=== PATIENT | male | born 1975 | race Caucasian/White ===

== ENCOUNTER 2019-05-03 12:04 | Emergency (ER) | payer BC ==
[2019-05-03 12:33] LABS: ADD MAN DIFF? NO
[2019-05-03 12:35] LABS: WHITE BLOOD COUNT 5.5 10^3/ul (4.8-10.8)
[2019-05-03 12:35] LABS: BASOPHILS % 0.5 % (0.0-2.0); EOSINOPHILS # 0.1 10^3/ul (0.0-0.5); EOSINOPHILS % 1.3 % (0.0-7.0); HEMATOCRIT 46.6 % (42.0-52.0); HEMOGLOBIN 16.3 g/dl (14.0-18.0); LYMPHOCYTES # 1.5 10^3/ul (0.8-2.9); LYMPHOCYTES % 28.2 % (15.0-51.0); MEAN CORPUSCULAR VOLUME 91.6 fl (82.0-101.0); MEAN PLATELET VOLUME 10.9 fl (7.4-10.4); MONOCYTE # 0.4 10^3/ul (0.3-0.9); MONOCYTES % 7.7 % (0.0-11.0); NEUTROPHIL # 3.4 10^3/ul (1.6-7.5); NEUTROPHILS % 61.9 % (39.0-77.0); PLATELET COUNT 200 10^3/UL (140-415); RED BLOOD COUNT 5.09 10^6/ul (4.70-6.10); RED CELL DISTRIBUTION WIDTH 12.3 % (11.5-14.5)
[2019-05-03 12:53] LABS: ALANINE AMINOTRANSFERASE 33 IU/L (13-69); ALBUMIN 4.6 g/dl (3.3-4.9); ALBUMIN/GLOBULIN RATIO 1.39; ALKALINE PHOSPHATASE 56 IU/L (42-121); ANION GAP 12 (5-13); ASPARTATE AMINO TRANSFERASE 30 IU/L (15-46); BILIRUBIN,INDIRECT 0.9 mg/dl (0-1.1); BILIRUBIN,TOTAL 0.9 mg/dl (0.2-1.3); BLOOD UREA NITROGEN 17 mg/dl (7-20); CALCIUM 9.5 mg/dl (8.4-10.2); CARBON DIOXIDE 27 mmol/L (21-31); CHLORIDE 102 mmol/L (97-110); CHOL/HDL RATIO 3.6 RATIO; CHOLESTEROL 209 mg/dl (100-200); CREATINE KINASE 72 IU/L (23-200); CREATININE 1.05 mg/dl (0.61-1.24); Estimated GFR > 60 mL/min (>60); GLUCOSE 120 mg/dl (70-220); HDL CHOLESTEROL 58 mg/dl (27-67); LDL CHOLESTEROL,CALCULATED 134 mg/dl; POTASSIUM 3.9 mmol/L (3.5-5.1); SODIUM 141 mmol/L (135-144); TOTAL PROTEIN 7.9 g/dl (6.1-8.1); TRIGLYCERIDES 85 mg/dl (0-149)
[2019-05-03 12:56] LABS: HEMOGLOBIN A1C 5.5 % (0-5.9)
[2019-05-03 13:00] LABS: CK INDEX 1.8; CK-MB 1.32 ng/ml (0.0-2.4)
[2019-05-03 13:01] LABS: ETHANOL < 10.0 mg/dl (0-0); INR 0.96; PROTIME 12.9 Sec (11.9-14.9)
[2019-05-03 13:02] LABS: PARTIAL THROMBOPLASTIN TIME 30.3 Sec (23.0-35.0)
[2019-05-03 13:08] LABS: TROPONIN-I < 0.012 ng/ml (0.000-0.120)
[2019-05-03] MEDS: IOHEXOL 100 ML (13:14)
[2019-05-03] MEDS: SOD CHLORIDE 0.9% 100 ML (13:15)
[2019-05-03 14:02] LABS: ADD UMIC NO; UR ASCORBIC ACID NEGATIVE (NEGATIVE); UR BILIRUBIN (Dip) NEGATIVE (NEGATIVE); UR BLOOD (Dip) NEGATIVE (NEGATIVE); UR CLARITY CLEAR (CLEAR); UR COLOR STRAW (YELLOW); UR GLUCOSE (Dip) NEGATIVE (NEGATIVE); UR KETONES (Dip) NEGATIVE (NEGATIVE); UR LEUKOCYTE ESTERASE (Dip) NEGATIVE Leu/ul (NEGATIVE); UR NITRITE (Dip) NEGATIVE (NEGATIVE); UR SPECIFIC GRAVITY (Dip) > 1.060 (1.003-1.030); UR TOTAL PROTEIN (Dip) NEGATIVE (NEGATIVE); UR UROBILINOGEN (Dip) NEGATIVE (NEGATIVE)
[2019-05-03] MEDS: LABETALOL HCL 20MG INJ IV (14:16)
[2019-05-03 14:20] LABS: AMPHETAMINE/METHAMPHETAMINE Negative (NEGATIVE); BARBITURATES Negative (NEGATIVE); BENZODIAZEPINES Negative (NEGATIVE); CANNABINOIDS Positive (NEGATIVE); COCAINE Negative (NEGATIVE); OPIATES Negative (NEGATIVE)
== END 2019-05-03 14:25 | disposition short-term general hospital (02) ==
LOC: E/R 12:04
DX: I63.9 Cerebral infarction, unspecified (principal); R40.2142 Coma scale, eyes open, spontaneous, at arrival to emergency department; R40.2362 Coma scale, best motor response, obeys commands, at arrival to emergency department; R40.2252 Coma scale, best verbal response, oriented, at arrival to emergency department; I10 Essential (primary) hypertension; I77.71 Dissection of carotid artery; R42 Dizziness and giddiness
CPT/HCPCS: 36415; 70450; 70496; 70498; 71045; 80053; 80061; 80307; 81003; 82550; 82553; 83036; 84484; 85025; 85610; 85730; 93005; 96374; 99285-25

== ENCOUNTER 2019-05-12 09:15 | Emergency (ER) | payer BC ==
[2019-05-12 09:49] LABS: ADD MAN DIFF? NO
[2019-05-12] MEDS ORDERED: IOHEXOL 100 ML ×2 (09:51→14:32)
[2019-05-12] MEDS ORDERED: SOD CHLORIDE 0.9% 100 ML ×2 (09:51→14:32)
[2019-05-12 09:54] LABS: WHITE BLOOD COUNT 6.2 10^3/ul (4.8-10.8)
[2019-05-12 09:54] LABS: BASOPHILS % 0.5 % (0.0-2.0); EOSINOPHILS # 0.2 10^3/ul (0.0-0.5); EOSINOPHILS % 3.2 % (0.0-7.0); HEMATOCRIT 41.7 % (42.0-52.0); HEMOGLOBIN 14.4 g/dl (14.0-18.0); LYMPHOCYTES # 1.6 10^3/ul (0.8-2.9); LYMPHOCYTES % 25.5 % (15.0-51.0); MEAN CORPUSCULAR HEMOGLOBIN 31.9 pg (29.0-33.0); MEAN CORPUSCULAR HGB CONC 34.5 g/dl (32.0-37.0); MEAN CORPUSCULAR VOLUME 92.3 fl (82.0-101.0); MEAN PLATELET VOLUME 10.9 fl (7.4-10.4); MONOCYTE # 0.6 10^3/ul (0.3-0.9); MONOCYTES % 10.4 % (0.0-11.0); NEUTROPHIL # 3.7 10^3/ul (1.6-7.5); NEUTROPHILS % 59.8 % (39.0-77.0); PLATELET COUNT 199 10^3/UL (140-415); RED BLOOD COUNT 4.52 10^6/ul (4.70-6.10); RED CELL DISTRIBUTION WIDTH 12.1 % (11.5-14.5)
[2019-05-12] MEDS ORDERED: HYDROmorphONE 1 MG/ML SYG IV (09:55)
[2019-05-12] MEDS: SOD CHLORIDE 0.9% 500 ML IV (10:01)
[2019-05-12 10:12] LABS: ALANINE AMINOTRANSFERASE 143 IU/L (13-69); ALBUMIN 4.3 g/dl (3.3-4.9); ALBUMIN/GLOBULIN RATIO 1.38; ALKALINE PHOSPHATASE 53 IU/L (42-121); AMYLASE 107 U/L (11-123); ANION GAP 8 (5-13); ASPARTATE AMINO TRANSFERASE 77 IU/L (15-46); BILIRUBIN,INDIRECT 0.6 mg/dl (0-1.1); BILIRUBIN,TOTAL 0.6 mg/dl (0.2-1.3); BLOOD UREA NITROGEN 15 mg/dl (7-20); CALCIUM 9.5 mg/dl (8.4-10.2); CARBON DIOXIDE 29 mmol/L (21-31); CHLORIDE 104 mmol/L (97-110); CREATININE 0.95 mg/dl (0.61-1.24); Estimated GFR > 60 mL/min (>60); GLUCOSE 111 mg/dl (70-220); SODIUM 141 mmol/L (135-144); TOTAL PROTEIN 7.4 g/dl (6.1-8.1)
[2019-05-12 10:22] LABS: TROPONIN-I < 0.012 ng/ml (0.000-0.120)
[2019-05-12 10:23] LABS: PARTIAL THROMBOPLASTIN TIME 27.5 Sec (23.0-35.0)
[2019-05-12] MEDS: LORAZEPAM 2 MG INJ IV (10:23)
[2019-05-12] MEDS: ONDANSETRON 4 MG INJ IV (10:23)
[2019-05-12 10:27] LABS: INR 0.92; PROTIME 12.5 Sec (11.9-14.9)
[2019-05-12 10:49] LABS: INR 0.92; PARTIAL THROMBOPLASTIN TIME 27.5 Sec (23.0-35.0); PROTIME 12.5 Sec (11.9-14.9)
[2019-05-12 10:49] LABS: PLATELET COUNT 199 10^3/UL (140-415)
[2019-05-12 11:04] LABS: THROMBIN TIME 13.9 SEC (13.8-19.1)
[2019-05-12 13:06] LABS: HEMATOCRIT 37.1 % (42.0-52.0); HEMOGLOBIN 12.9 g/dl (14.0-18.0)
[2019-05-12] MEDS ORDERED: SOD CHLORIDE 0.9% 1,000 ML IV (14:30)
[2019-05-12] MEDS ORDERED: ONDANSETRON 4 MG INJ IV (14:30)
[2019-05-12] MEDS ORDERED: morphine 2 MG INJ IV (14:30)
[2019-05-12] MEDS: ACETAMINOPHEN 325 MG TAB PO (15:40)
[2019-05-12] MEDS: AMLODIPINE 5 MG TAB PO (15:44)
[2019-05-12] MEDS ORDERED: GABAPENTIN 300 MG CAP PO (21:00)
== END 2019-05-12 17:30 | disposition short-term general hospital (02) ==
LOC: E/R 09:15
DX: J95.831 Postprocedural hemorrhage of a respiratory system organ or structure following other procedure (principal); R04.2 Hemoptysis; I10 Essential (primary) hypertension; R42 Dizziness and giddiness; Z79.82 Long term (current) use of aspirin
CPT/HCPCS: 70450; 70496; 70498; 71045; 71275; 80053; 82150; 84484; 85014; 85018; 85025; 85049; 85362; 85378; 85384; 85610; 85670; 85730; 86850; 86900; 86901; 93005; 96374; 96375; 99291-25